=== PATIENT | female | born 1935 | race Caucasian/White ===

== ENCOUNTER 2022-10-01 12:20 | Outpatient (CLI) | payer MEDICARE, SELFPAY ==
--- NOTE | 2022-10-01 12:50 | ECG_ITS ---
Measurements Intervals [place] Rate: 86 P: 42 CA: 186 QRS: 8 QRSD: 94 T: 53 QT: 372 QTc: 447 Interpretive Statements SINUS RHYTHM DELAYED PRECORDIAL R/S TRANSITION VOLTAGE CRITERIA FOR LVH CONSIDER INFERIOR INFARCT, AGE INDETERMINATE NONSPECIFIC T-WAVE ABNORMALITY- HIGH LATERAL LEADS ABNORMAL ECG NO PREVIOUS ECG AVAILABLE FOR COMPARISON Electronically Signed On 10-01-2022 13:14:21 CDT by Twan Espinosa D.O.
[2022-10-01 13:15] LABS: Anion Gap 12 mmol/L (8-16); Blood Urea Nitrogen 22 mg/dL (7-17); Calcium 8.6 mg/dL (8.4-10.2); Carbon Dioxide 28 mmol/L (22-30); Chloride 94 mmol/L (98-107); Estimated Glomerular Filt Rate 39; Glucose 253 mg/dL (65-110); Potassium 3.8 mmol/L (3.4-5.0); Sodium 134 mmol/L (137-145)
== END 2022-10-01 12:21 | disposition home or self-care (01) ==
PROVIDERS: Anesthesiology; PCP Internal Medicine; Visit Provider Otolaryngology
DX: E11.9 Type 2 diabetes mellitus without complications (principal); I10 Essential (primary) hypertension; Z01.818 Encounter for other preprocedural examination; R94.31 Abnormal electrocardiogram [ECG] [EKG]
CPT/HCPCS: 36415; 80048; 93005

== ENCOUNTER 2022-10-07 01:16 | Day surgery (SDC) | payer MEDICARE, SELFPAY ==
[2022-09-25 12:02] VITALS: BMI 29.3
--- NOTE | 2022-09-25 12:28 | PC.NURSE ---
PRE-OP INSTRUCTIONS, PLEASE READ CAREFULLY Report to the Outpatient Waiting Room, entrance under the green pavilion located off [facility], at time __1 PM on date _10/07/22_. Planned Procedure Time: _3 PM__. Time changes happen often and if your time is changed the preop area will call you the afternoon before. - You and your visitor will be asked to self-screen and do not enter if you have any COVID symptoms. - A mask is optional within the hospital at this time. Patients may have clear liquids (water, carbonated beverages, clear teas, apple juice) until 3 hours prior to surgery (1200 - NOON) with a maximum of 20 ounces. - No food from midnight until time of surgery Take the following medications with a SIP of water the morning of surgery: _GABAPENTIN, SERTRALINE & TYLENOL, LORAZEPAM IF NEEDED_ DO NOT STOP ANY OF YOUR OTHER PRESCRIPTION MEDICATIONS PRIOR TO SURGERY ?EXCEPT THE FOLLOWING Medications to discontinue _ASPIRIN & CLOPIDOGREL (PLAVIX) CALL DR. VARELA'S OFFICE FOR INSTRUCTIONS_ Please no make-up, nail bangladeshi, hairspray, perfume, deodorant, or body powder the day of surgery. No jewelry (including any body piercings) or valuables the day of surgery, leave them at home. Please take a shower or bath the night before, or the morning of, surgery with an antibacterial soap. Wear comfortable, loose fitting clothing. - Jewelry must be removed prior to entering the operating room. Rings and piercings that are not removed may be cut off. - The hospital will not accept responsibility for valuables. - Please leave all valuables, including medications, at home the day of surgery. If you are going home after surgery, a licensed fleet driver must drive you home. - NO public transportation without another adult if you receive anesthesia. - We recommend that an adult stay with you for 24 hours following discharge. - We also recommend that you do not drive, make important decision, drink alcoholic beverages, or take any drugs that were not prescribed by your health care provider for at least 24 hours after your discharge time. Follow any additional instructions given to you from your surgeon. If you or anyone in your household have experienced Covid symptoms in the past week, please notify your surgeon or the nurse liaison at the phone number below for possible testing. Telephone instructions given to _PATIENT_and asked if any additional questions and then verbalized understanding. Patient advised to call surgeon office or pre surgery nurse liaison [phone] if any additional questions.
--- NOTE | 2022-10-04 17:39 | P.HP_ITS ---
H&P: HPI History of Present Illness Date/Time: 10/04/22 17:39 Chief Complaint: Tongue lesion Narrative: planned procedure Review of Systems Review of Systems: All systems reviewed & are unremarkable except as noted in HPI and below [facility] Past Medical History Medical History (Updated 09/18/22 @ 13:48 by London Patel MD) Cataract Surgical History Surgical History (Updated 09/18/22 @ 13:23 by Alice Ryan CMA) H/O hysterectomy for benign disease Family History Family History (Updated 09/18/22 @ 13:24 by Alice Ryan CMA) Father Depression Mother Depression Sibling Depression Son Cancer Other Cancer Depression Grandparent Depression Social History Social History (Updated 09/18/22 @ 13:16 by Alice Ryan CMA) Smoking status: Never smoker Second hand tobacco smoke exposure: No Alcohol intake: never Substance use: never Substance use type: does not use Living arrangements: with family Spiritual care concerns: No Meds Home Medications and Allergies Home Medications Medication Instructions Recorded Confirmed Type acetaminophen 500 mg tablet 500 mg PO Q6H PRN Pain 09/18/22 09/25/22 History (Tylenol Extra Strength) aspirin 81 mg capsule 81 mg PO DAILY 09/18/22 09/25/22 History atorvastatin 20 mg tablet 20 mg PO DAILY 09/18/22 09/25/22 History clopidogrel 75 mg tablet 75 mg PO DAILY 09/18/22 09/25/22 History furosemide 40 mg tablet 40 mg PO QAM 09/18/22 09/25/22 History gabapentin 100 mg capsule 100 mg PO BID 09/18/22 09/25/22 History insulin glargine 100 unit/mL (3 13 unit subcut QPM 09/18/22 09/25/22 History mL) subcutaneous pen (Lantus Solostar U-100 Insulin) lorazepam 1 mg tablet 1 mg PO BID PRN Anxiety 09/18/22 09/25/22 History losartan 100 mg tablet 100 mg PO DAILY 09/18/22 09/25/22 History quetiapine 50 mg tablet 50 mg PO QHS 09/18/22 09/25/22 History sertraline 25 mg tablet (Zoloft) 25 mg PO DAILY 09/18/22 09/25/22 History cyanocobalamin (vitamin B-12) 1 tab-cap DAILY 09/25/22 09/25/22 History potassium chloride 20 mEq 20 meq PO DAILY 09/25/22 09/25/22 History tablet,extended release Allergies Allergy/AdvReac Type Severity Reaction Status Date / Time ciprofloxacin Allergy Severe ITCHING Verified 09/25/22 11:55 levofloxacin Allergy Severe ITCHING Verified 09/25/22 11:55 lidocaine AdvReac HOT FLUSH Verified 09/25/22 14:34 FEELING Exam Narrative: large anterior based tongue lesion Assessment and Plan Assessment and plan (1) Tongue lesion: Code(s): K14.8 - Other diseases of tongue Status: Acute Plan plan operating room for excisional biopsy of tongue lesion. Total operative time probably only 30 minutes will need a side-biting mouth gag. Risks were discussed including bleeding infection , risks of anesthesia at her age as well. Failure to obtain diagnosis. Postoperative pain.
[2022-10-07 12:55] VITALS: BP 146/70; PULSE 84; RESP 16; TEMP 36.3; O2SAT 95; BMI 28.2
[2022-10-07 14:01] LABS: Glucose Point of Care 116 mg/dl (65-105)
[2022-10-07] MEDS: LACTATED RINGERS 1,000 ML 30 ML IV CONT (14:15)
--- NOTE | 2022-10-07 14:42 | WPDHPUPDATE1 ---
History and Physical Update Update Date/Time: 10/07/22 14:42 History and Physical has been reviewed, including an updated exam of the patient. There are NO changes in the patient's condition. Risks, benefits, and alternatives have been discussed and questions answered. Patient agrees to proceed with procedure.
--- NOTE | 2022-10-07 14:44 | WPDANESEPP ---
Anes - Eval Pre Procedure Procedure: Operation Date: 10/07/22 15:00 Proposed Procedures p Biopsy of Tongue Lesion - London Patel MD Date/Time: 10/07/22 14:44 Pre Op Diagnosis: tongue lesion Patient Data Age: 87 Gender: F Height: 1.5 m Weight: 63.4 kg Last Vital Signs Temp 36.3 C L 10/07/22 12:55 Pulse 84 10/07/22 12:55 Resp 16 10/07/22 12:55 BP 146/70 H 10/07/22 12:55 Pulse Ox 95 10/07/22 12:55 O2 Del Method Room Air 10/07/22 12:55 Allergies Allergy/AdvReac Type Severity Reaction Status Date / Time ciprofloxacin Allergy Severe ITCHING Verified 10/07/22 14:04 levofloxacin Allergy Severe ITCHING Verified 10/07/22 14:04 lidocaine AdvReac HOT FLUSH Verified 10/07/22 14:04 FEELING Home Medications Medication Instructions Recorded Confirmed Type acetaminophen 500 mg tablet 500 mg PO Q6H PRN Pain 09/18/22 09/25/22 History (Tylenol Extra Strength) aspirin 81 mg capsule 81 mg PO DAILY 09/18/22 10/07/22 History atorvastatin 20 mg tablet 20 mg PO DAILY 09/18/22 09/25/22 History clopidogrel 75 mg tablet 75 mg PO DAILY 09/18/22 10/07/22 History furosemide 40 mg tablet 40 mg PO QAM 09/18/22 10/07/22 History gabapentin 100 mg capsule 100 mg PO BID 09/18/22 09/25/22 History insulin glargine 100 unit/mL (3 13 unit subcut QPM 09/18/22 10/07/22 History mL) subcutaneous pen (Lantus Solostar U-100 Insulin) lorazepam 1 mg tablet 1 mg PO BID PRN Anxiety 09/18/22 09/25/22 History losartan 100 mg tablet 100 mg PO DAILY 09/18/22 09/25/22 History quetiapine 50 mg tablet 50 mg PO QHS 09/18/22 09/25/22 History sertraline 25 mg tablet (Zoloft) 25 mg PO DAILY 09/18/22 09/25/22 History cyanocobalamin (vitamin B-12) 1 tab-cap DAILY 09/25/22 09/25/22 History potassium chloride 20 mEq 20 meq PO DAILY 09/25/22 09/25/22 History tablet,extended release Laboratory Tests 10/07/22 13:53 POC Capillary Glucose 116 H mg/dl (65-105) Patient hx anesthesia problems: none Family hx anesthesia problems: none Results Review: All pre-operative results and documents have been reviewed as part of the pre-operative evaluation. [facility] Past Medical History Medical History (Updated 10/07/22 @ 14:45 by Deanna Tillman CRNA) Anxiety CAD (coronary artery disease) Cataract Depression DM (diabetes mellitus) Overweight Surgical History Surgical History (Updated 10/07/22 @ 14:45 by Deanna iTllman CRNA) H/O hysterectomy for benign disease Hx of CABG Family History Family History (Updated 09/18/22 @ 13:24 by Alice Ryan CMA) Father Depression Mother Depression Sibling Depression Son Cancer Other Cancer Depression Grandparent Depression Social History Social History (Updated 09/18/22 @ 13:16 by Alice Ryan CMA) Smoking status: Never smoker Second hand tobacco smoke exposure: No Alcohol intake: never Substance use: never Substance use type: does not use Living arrangements: with family Spiritual care concerns: No Exam Day of Procedure 10/07/22 14:44
--- NOTE | 2022-10-07 14:45 | P.PNAN_ITS ---
Anes - Eval Final PreProcedure Day of Procedure 10/07/22 14:45 Patient weight: overweight Heart: regular rate and rhythm Lungs: decreased breath sounds Airway: Mallampati scale class III Neurological: alert and oriented Last oral intake: >/= 8 hours ASA classification: III Emergent: no Anesthetic plan: proceed Anesthesia type and monitoring: general ETT and standard monitoring Results Review: All pre-operative results and documents have been reviewed as part of the pre- operative evaluation. Informed Consent: The patient's anesthetic plan and its attendant risks and benefits were discussed with the patient/family/POA. Questions were solicited and answers provided to the satisfaction of the patient/family/POA.
[2022-10-07] MEDS: ceFAZolin 2 GM/D5W 50 ML 2 GM/50 ML BAG IVPB (14:49)
[2022-10-07] MEDS: LIDO 1%/EPINEPHRINE 1:100,000 50 ML VIAL INFILTRATE (15:00)
[2022-10-07 15:20] VITALS: BP 150/65; PULSE 88; RESP 23; TEMP 36.4; O2SAT 96
[2022-10-07 15:24] LABS: Glucose Point of Care 123 mg/dl (65-105)
[2022-10-07 15:35] VITALS: BP 147/68; PULSE 76; RESP 20; O2SAT 97
--- NOTE | 2022-10-07 15:44 | W.PM.PROC2 ---
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 Patient brought operating. Time-out performed. General anesthesia induced endotracheal tube secured. Patient prepped draped position. Second time-out performed. Bovie utilized on cut at a setting of 10 2 about 1 x 1 cm portions at that/ 2.5 x 0.75 cm portions excise 1 sent for frozen 1 sent for permanent no bleeding patient tolerated the procedure well. No complications. Care the patient given Anesthesiology patient taken to PACU. Drains No Packing Yes Pathology Yes ( Positive frozen SCCa) Complications No immediate complications Condition Stable Disposition PACU [facility] Billing Surgery - Charge Forward: Surgery Billing
[2022-10-07 15:50] VITALS: BP 140/64; PULSE 74; RESP 20; O2SAT 96
[2022-10-07 16:05] VITALS: BP 157/52; PULSE 78; RESP 16
[2022-10-07 16:35] VITALS: BP 154/64; PULSE 77; RESP 16
== END 2022-10-07 16:56 | disposition home or self-care (01) ==
PROVIDERS: PCP Internal Medicine; Visit Provider Otolaryngology
PROC: (CPT 40810; principal; 2022-10-07 15:00)
DX: C02.9 Malignant neoplasm of tongue, unspecified (principal); I25.10 Atherosclerotic heart disease of native coronary artery without angina pectoris; E11.9 Type 2 diabetes mellitus without complications; F41.9 Anxiety disorder, unspecified; F32.A Depression, unspecified; Z95.1 Presence of aortocoronary bypass graft; Z79.82 Long term (current) use of aspirin; Z79.4 Long term (current) use of insulin; Z79.02 Long term (current) use of antithrombotics/antiplatelets
CPT/HCPCS: 41100; 82948; 88305; 88331; J0330; J0690; J2405; J2704; J7120

== ENCOUNTER 2023-02-21 14:52 | Emergency (ER) | payer MEDICARE, SELFPAY ==
--- NOTE | ~2023-02-21 | CT_ITS ---
EXAMINATION: CT abdomen pelvis wo con DATE: 02/21/2023 21:59 INDICATION: Abdominal pain TECHNIQUE: Computed tomography (CT) of the abdomen and pelvis was performed without intravenous contr ast. The dose-length product (DLP) was 784.27 mGy-cm. Automated exposure control and iterative recons truction technique were employed. COMPARISON: 11/15/2007 FINDINGS: There is mild atelectasis of the visualized lung bases. Areas of more focal airspace opacit ies are seen in the left lung base. The heart size is normal. Changes of median sternotomy are noted. The liver, pancreas, and left adrenal gland are normal. There is a 7 mm adenoma of the right adrenal gland. Punctate calcifications in an otherwise normal spleen likely represent healed granulomatous d isease. Changes of cholecystectomy are noted. The kidneys are unremarkable. There is calcified athero sclerosis of the aorta and many of the other arteries. No pathologically enlarged abdominal or pelvic lymph nodes are identified. No free intraperitoneal gas or evidence of bowel obstruction. There is s evere lumbar spondylosis. There is fusion of the T10 and T11 vertebral bodies. Severe lower thoracic spondylosis is noted. IMPRESSION: 1. No CT correlate for the patient's symptoms. 2. Minimal airspace opacities of the left lung base, likely pneumonia. Reviewed, dictated and finalized at location F.
[2023-02-21 14:56] VITALS: BP 170/69; PULSE 88; RESP 20; TEMP 36.6; O2SAT 98
[2023-02-21 16:29] LABS: Basophils Percent Auto 0.2 % (0.2-1.2); Eosinophils Absolute Auto 0.1 K/mm3 (0-0.3); Eosinophils Percent Auto 0.9 % (0-4.4); Hematocrit 37.2 % (37.0-47.0); Hemoglobin 12.2 g/dL (12.0-15.0); Immature Granulocyte Absolute 0.03 K/mm3 (0.00-0.031); Immature Granulocyte Percent A 0.3 % (0-0.5); Lymphocytes Absolute Auto 1.78 K/mm3 (0.9-3.2); Lymphocytes Percent Auto 20.4 % (18.3-44.2); Mean Corpuscular HGB Conc 32.8 g/dl (32-36); Mean Corpuscular Hemoglobin 28.8 pg (26-34); Mean Corpuscular Volume 87.9 fl (80-100); Mean Platelet Volume 8.9 fl (7.4-10.4); Monocytes Absolute Auto 0.7 K/mm3 (0.1-0.6); Monocytes Percent Auto 8.2 % (2.6-8.5); Neutrophils Absolute Auto 6.1 K/mm3 (1.3-6.7); Platelet Count Result 301 k/mm3 (150-375); Red Blood Count 4.23 M/mm3 (4.2-5.4); Red Cell Distribution Width 13.4 % (11.5-14.5); White Blood Count 8.7 K/mm3 (4.5-10.0)
[2023-02-21 16:35] LABS: Appearance Urine Clear (Clear); Bacteria Urine None Seen /hpf; Bilirubin Urine Negative (Negative); Blood Urine Negative (Negative); Color Urine Yellow (Yellow); Glucose Urine UA Negative (Negative); Ketones Urine Negative (Negative); Leukocyte Esterase Ur 2+ LEU/UL (Negative); Nitrate Urine Negative (Negative); Non Pathogenic Casts 0-2; Protein Urine Trace mg/dL (Negative); RBC Urine 0-2 /hpf (0-2); Specific Grav Ur 1.017 (1.001-1.035); Squamous Epithelial Cell Urine Few /hpf (Few); pH Urine 6.5 (5.0-9.0)
[2023-02-21 16:38] LABS: Alanine Aminotransferase 16 U/L (6-35); Albumin Level 4.2 g/dL (3.5-5.1); Alkaline Phosphatase 75 U/L (38-126); Anion Gap 11 mmol/L (8-16); Aspartate Amino Transferase 25 U/L (14-36); Bilirubin,Total 0.4 mg/dL (0.2-1.3); Blood Urea Nitrogen 12 mg/dL (7-17); Carbon Dioxide 26 mmol/L (22-30); Chloride 99 mmol/L (98-107); Estimated Glomerular Filt Rate > 60; Glucose 164 mg/dL (65-110); Lipase 119 U/L (23-300); Potassium 3.6 mmol/L (3.4-5.0); Sodium 136 mmol/L (137-145)
[2023-02-21 16:45] LABS: Add Urine Microscopic? YES
--- NOTE | 2023-02-21 20:32 | ED.GENADULT ---
HPI - General Adult General Chief complaint: Abdominal Pain Stated complaint: back pain, shoulder pain Time Seen by Provider: 02/21/23 20:19 History of Present Illness HPI narrative: Patient 87-year-old female who presents the emergency department with chief complaint of abdominal pain. Patient reports for the last 2 weeks she has been having pain in her abdomen reports it radiates to her back. Patient states pain is sharp reports that its not improved by anything reports that she feels as though the bones are moving in her abdomen. The patient states that the pain is not improved by anything reports that she had 1 episode of vomiting patient reports that she has been taking a laxative and has not had a loose orange-colored stool. Patient does report that she had multiple abdominal surgeries in the past Related Data Home Medications Medication Instructions Recorded Confirmed acetaminophen 500 mg tablet 500 mg PO Q6H PRN Pain 09/18/22 09/25/22 (Tylenol Extra Strength) aspirin 81 mg capsule 81 mg PO DAILY 09/18/22 10/07/22 atorvastatin 20 mg tablet 20 mg PO DAILY 09/18/22 09/25/22 clopidogrel 75 mg tablet 75 mg PO DAILY 09/18/22 10/07/22 furosemide 40 mg tablet 40 mg PO QAM 09/18/22 10/07/22 gabapentin 100 mg capsule 100 mg PO BID 09/18/22 09/25/22 insulin glargine 100 unit/mL (3 13 unit subcut QPM 09/18/22 10/07/22 mL) subcutaneous pen (Lantus Solostar U-100 Insulin) lorazepam 1 mg tablet 1 mg PO BID PRN Anxiety 09/18/22 09/25/22 losartan 100 mg tablet 100 mg PO DAILY 09/18/22 09/25/22 quetiapine 50 mg tablet 50 mg PO QHS 09/18/22 09/25/22 sertraline 25 mg tablet (Zoloft) 25 mg PO DAILY 09/18/22 09/25/22 cyanocobalamin (vitamin B-12) 1 tab-cap DAILY 09/25/22 09/25/22 potassium chloride 20 mEq 20 meq PO DAILY 09/25/22 09/25/22 tablet,extended release Allergies Allergy/AdvReac Type Severity Reaction Status Date / Time ciprofloxacin Allergy Severe ITCHING Verified 02/21/23 20:41 levofloxacin Allergy Severe ITCHING Verified 02/21/23 20:41 iodine Allergy Unknown Verified 02/21/23 21:58 lidocaine AdvReac HOT FLUSH Verified 02/21/23 20:41 FEELING Review of Systems Review of Systems: A 10 system review of systems was completed on the patient and is negative except for what is stated in the HPI. Nursing and ancillary documentation was reviewed. PMFSH Past Medical History Medical History Anxiety CAD (coronary artery disease) Cataract Depression DM (diabetes mellitus) Overweight Surgical History Surgical History H/O hysterectomy for benign disease Hx of CABG Family History Family History Father Depression Mother Depression Sibling Depression Son Cancer Other Cancer Depression Grandparent Depression Social History Social History Smoking status: Never smoker Second hand tobacco smoke exposure: No Alcohol intake: never Substance use: never Substance use type: does not use Living arrangements: with family Gender identity (if verbalized by the patient): Female Sexual Orientation (if Verbalized by the Patient): Straight or Heterosexual Spiritual care concerns: No Exam Narrative: GENERAL: Well-appearing, well-nourished, and in no acute distress. HEAD: Normocephalic, atraumatic. EYES: PERRLA and EOMI. ENT: Nares clear, no rhinorrhea or epistaxis. Mucous membranes moist. NECK: Supple. CHEST: Clear to auscultation. No respiratory distress. HEART: Regular rate and rhythm. No murmur heard. Normal peripheral pulses. ABDOMEN: Soft, diffuse tenderness to palpation, nondistended, normal active bowel sounds. EXTREMITIES: Normal range of motion. No edema. SKIN: Warm, dry, no rash. NEURO: No focal deficits. Alert and orien
[2023-02-21 20:36] VITALS: BP 224/84; PULSE 81; RESP 18; O2SAT 97
[2023-02-21] MEDS: MORPHINE SULFATE (*CRX) 4 MG/ML INJ 2 MG IV PUSH (21:41)
[2023-02-21] MEDS: CEFDINIR 300 MG CAPSULE PO (23:25)
[2023-02-21] MEDS: AZITHROMYCIN 250 MG TABLET 500 MG PO (23:25)
== END 2023-02-21 23:45 | disposition home or self-care (01) ==
PROVIDERS: Emergency Medicine; Emergency Provider Emergency Medicine; PCP Internal Medicine
DX: J18.9 Pneumonia, unspecified organism (principal); N39.0 Urinary tract infection, site not specified; R10.9 Unspecified abdominal pain; I25.10 Atherosclerotic heart disease of native coronary artery without angina pectoris; E11.9 Type 2 diabetes mellitus without complications; F41.9 Anxiety disorder, unspecified; Z95.1 Presence of aortocoronary bypass graft; Z79.82 Long term (current) use of aspirin; Z79.02 Long term (current) use of antithrombotics/antiplatelets; Z79.4 Long term (current) use of insulin; Z79.891 Long term (current) use of opiate analgesic
CPT/HCPCS: 36415; 74176; 80053; 81001; 83690; 85025; 87086; 87088; 96374; 99284; A9270; J2270

== ENCOUNTER 2023-02-26 15:21 | Emergency (ER) | payer MEDICARE, SELFPAY ==
[2023-02-26] VITALS (23 sets, daily range): BP systolic 156–230; BP diastolic 72–99; PULSE 78–117; RESP 12–21; TEMP 35.7; O2SAT 95–98
--- NOTE | ~2023-02-26 | XR_ITS ---
EXAMINATION: XR chest 2V DATE: 02/26/2023 16:41 INDICATION: Chest pain. TECHNIQUE: Frontal and lateral views of the chest were obtained. COMPARISON: Chest single view 09/09/2013, CT abdomen and pelvis 02/21/2023 FINDINGS: There are interstitial opacities in left mid and lower lung zones. A calcified left lung no dules consistent with old granulomatous disease. No pleural effusion or pneumothorax. The heart size is normal. Median sternotomy wires and mediastinal surgical clips are seen, likely from prior coronar y artery bypass grafting. Surgical clips in the right upper quadrant are likely from cholecystectomy. There is an old healed right rib fracture. IMPRESSION: 1. Interstitial opacities in left mid and lower lung zones, consistent with pneumonia and/or chronic lung disease. Reviewed, dictated and finalized at location E. IMPRESSION: 1. Interstitial opacities in left mid and lower lung zones, consistent with pne umonia and/or chronic lung disease.
--- NOTE | ~2023-02-26 | CT_ITS ---
EXAMINATION: CT abdomen pelvis wo con DATE: 02/26/2023 18:59 INDICATION: RLQ R low back abdominal pain TECHNIQUE: Computed tomography (CT) of the abdomen and pelvis was performed without intravenous contr ast. Automated exposure control and iterative reconstruction technique were employed. The dose-length product was 404.47 mGy-cm. COMPARISON: 02/21/2023. FINDINGS: Lower thorax: Bibasilar senescent change. Granulomatous calcification. Coronary artery calcification. Liver: Normal. Biliary/Gallbladder: Gallbladder is absent. No bile duct dilation. Pancreas: No mass or duct dilation. Spleen: Granulomatous calcification Adrenals: 7 mm right adrenal adenoma. Kidneys: No suspicious mass, obstructing stone, or hydronephrosis. GI tract: No small or large bowel dilation. Appendix not confidently visualized. No right lower quadr ant inflammatory process. Diverticulosis without diverticulitis. Mesentery/Peritoneum: No ascites, mass, or free air. Retroperitoneum: No mass. Atherosclerotic abdominal aortic and/or arterial calcifications. Pelvis: Absent uterus. Normal urinary bladder.. Soft Tissues: Right flank lipoma. Bones: No acute osseous finding. IMPRESSION: No acute abdominopelvic process detected Reviewed, dictated and finalized at location K.
--- NOTE | 2023-02-26 15:24 | ECG_ITS ---
Measurements Intervals [place] Rate: 78 P: 54 [place]: 209 QRS: 1 QRSD: 90 T: 47 QT: 410 QTc: 469 Interpretive Statements SINUS RHYTHM MODERATE VOLTAGE CRITERIA FOR LVH, CONSIDER NORMAL VARIANT [MEETS CRITERIA IN ONE OF: R(aVL), S(V1), R(V5), R(V5/V6)+S(V1)] NONSPECIFIC T-WAVE ABNORMALITY COMPARED TO ECG 10/01/2022 12:52:09 T-WAVE ABNORMALITY NOW PRESENT Electronically Signed On 02-26-2023 20:37:48 CDT by Indy More M.D.
[2023-02-26 15:55] LABS: Basophils Percent Auto 0.4 % (0.2-1.2); Eosinophils Absolute Auto 0.2 K/mm3 (0-0.3); Eosinophils Percent Auto 1.4 % (0-4.4); Hematocrit 41.9 % (37.0-47.0); Hemoglobin 13.4 g/dL (12.0-15.0); Immature Granulocyte Absolute 0.05 K/mm3 (0.00-0.031); Immature Granulocyte Percent A 0.5 % (0-0.5); Lymphocytes Absolute Auto 2.27 K/mm3 (0.9-3.2); Lymphocytes Percent Auto 20.6 % (18.3-44.2); Mean Corpuscular Hemoglobin 28.7 pg (26-34); Mean Corpuscular Volume 89.7 fl (80-100); Mean Platelet Volume 9.1 fl (7.4-10.4); Monocytes Absolute Auto 0.9 K/mm3 (0.1-0.6); Monocytes Percent Auto 7.9 % (2.6-8.5); Neutrophils Absolute Auto 7.6 K/mm3 (1.3-6.7); Neutrophils Percent Auto 69.2 % (45.5-73.1); Platelet Count Result 355 k/mm3 (150-375); Red Blood Count 4.67 M/mm3 (4.2-5.4); Red Cell Distribution Width 13.7 % (11.5-14.5)
[2023-02-26 16:04] LABS: Prothrombin Time 13.2 Seconds (11.1-14.7)
[2023-02-26 16:30] LABS: Partial Thromboplastin Time 20.3 SECONDS (22.3-36.8)
[2023-02-26 17:03] LABS: Alanine Aminotransferase 18 U/L (6-35); Albumin Level 4.7 g/dL (3.5-5.1); Alkaline Phosphatase 87 U/L (38-126); Anion Gap 11 mmol/L (8-16); Aspartate Amino Transferase 29 U/L (14-36); Bilirubin,Total 0.5 mg/dL (0.2-1.3); Blood Urea Nitrogen 14 mg/dL (7-17); Calcium 9.7 mg/dL (8.4-10.2); Carbon Dioxide 25 mmol/L (22-30); Chloride 101 mmol/L (98-107); Estimated Glomerular Filt Rate 59; Glucose 113 mg/dL (65-110); Lipase 141 U/L (23-300); Potassium 3.6 mmol/L (3.4-5.0); Sodium 137 mmol/L (137-145)
[2023-02-26 17:14] LABS: Troponin I < 0.012 ng/mL (0.000-0.034)
--- NOTE | 2023-02-26 18:30 | ED.GENADULT ---
HPI - General Adult General Chief complaint: Unspecified Stated complaint: pain all over Time Seen by Provider: 02/26/23 18:10 Source: patient and old records reviewed Mode of arrival: ambulatory Limitations: no limitations History of Present Illness HPI narrative: Patient is an 87 y/o female who presents to the ED with c/o R sided abdominal pain. Patient reports having pain for the last 1 week. She was seen in the ED here 5 days ago and her work-up revealed left-sided pneumonia, UTI. She was started on cefdinir and azithromycin. She finished these antibiotics yesterday. However patient reports pain has continued to worsen. Pain radiates around to her right lower back. She did report 1 episode of vomiting today. Denies feeling nauseous currently. Denies diarrhea, constipation, fevers, chest pain, shortness of breath, urinary difficulty. Related Data Home Medications Medication Instructions Recorded Confirmed acetaminophen 500 mg tablet 500 mg PO Q6H PRN Pain 09/18/22 09/25/22 (Tylenol Extra Strength) aspirin 81 mg capsule 81 mg PO DAILY 09/18/22 10/07/22 atorvastatin 20 mg tablet 20 mg PO DAILY 09/18/22 09/25/22 clopidogrel 75 mg tablet 75 mg PO DAILY 09/18/22 10/07/22 furosemide 40 mg tablet 40 mg PO QAM 09/18/22 10/07/22 gabapentin 100 mg capsule 100 mg PO BID 09/18/22 09/25/22 insulin glargine 100 unit/mL (3 13 unit subcut QPM 09/18/22 10/07/22 mL) subcutaneous pen (Lantus Solostar U-100 Insulin) lorazepam 1 mg tablet 1 mg PO BID PRN Anxiety 09/18/22 09/25/22 losartan 100 mg tablet 100 mg PO DAILY 09/18/22 09/25/22 quetiapine 50 mg tablet 50 mg PO QHS 09/18/22 09/25/22 sertraline 25 mg tablet (Zoloft) 25 mg PO DAILY 09/18/22 09/25/22 cyanocobalamin (vitamin B-12) 1 tab-cap DAILY 09/25/22 09/25/22 potassium chloride 20 mEq 20 meq PO DAILY 09/25/22 09/25/22 tablet,extended release Allergies Allergy/AdvReac Type Severity Reaction Status Date / Time ciprofloxacin Allergy Severe ITCHING Verified 02/21/23 20:41 levofloxacin Allergy Severe ITCHING Verified 02/21/23 20:41 iodine Allergy Unknown Verified 02/21/23 21:58 lidocaine AdvReac HOT FLUSH Verified 02/21/23 20:41 FEELING Review of Systems Review of Systems: CONSTITUTIONAL: Denies fever, chills, or sweats. CARDIOVASCULAR: Denies chest pain. RESPIRATORY: Denies dyspnea. GASTROINTESTINAL: See HPI. GENITOURINARY: Denies dysuria or hematuria. SKIN: Denies rash or itching. MUSCULOSKELETAL: See HPI. NEUROLOGIC: Denies headache, numbness, or weakness. All systems reviewed & are unremarkable except as noted in HPI and below PMFSH Past Medical History Medical History Anxiety CAD (coronary artery disease) Cataract Depression DM (diabetes mellitus) Overweight Surgical History Surgical History H/O hysterectomy for benign disease Hx of CABG Family History Family History Father Depression Mother Depression Sibling Depression Son Cancer Other Cancer Depression Grandparent Depression Social History Social History Smoking status: Never smoker Second hand tobacco smoke exposure: No Alcohol intake: never Substance use: never Substance use type: does not use Living arrangements: with family Gender identity (if verbalized by the patient): Female Sexual Orientation (if Verbalized by the Patient): Straight or Heterosexual Spiritual care concerns: No Exam Narrative: GENERAL: Elderly, frail, non-toxic, in no acute distress. HEAD: Normocephalic, atraumatic. NECK: Supple. No adenopathy, no masses. RESPIRATORY: Airway patent, respirations nonlabored. Clear to auscultation bilaterally, no rales, rhonchi, wheezing. CARDIOVASCULAR: Regular rate and rhythm without murmurs, rubs,
[2023-02-26] MEDS: ACETAMINOPHEN 325 MG TABLET 650 MG PO (18:36)
[2023-02-26] MEDS: hydrALAZINE HCL 20 MG/ML VIAL 10 MG IV PUSH ×2 (18:38→19:27)
[2023-02-26 19:14] LABS: Troponin I 0.016 ng/mL (0.000-0.034)
[2023-02-26 21:39] LABS: Appearance Urine Clear (Clear); Bacteria Urine None Seen /hpf; Bilirubin Urine Negative (Negative); Blood Urine Negative (Negative); Color Urine Yellow (Yellow); Glucose Urine UA Negative (Negative); Ketones Urine Trace mg/dL (Negative); Leukocyte Esterase Ur Negative LEU/UL (Negative); Nitrate Urine Negative (Negative); Non Pathogenic Casts 0-2; Protein Urine Trace mg/dL (Negative); RBC Urine 0-2 /hpf (0-2); Specific Grav Ur 1.021 (1.001-1.035); Squamous Epithelial Cell Urine None seen /hpf (Few); Urobilinogen Urine 0.2 mg/dL (<2.0); WBC Urine 0-5 /hpf
[2023-02-26 21:46] LABS: Add Urine Microscopic? YES
[2023-02-26 22:04] LABS: Troponin I < 0.012 ng/mL (0.000-0.034)
== END 2023-02-26 23:12 | disposition home or self-care (01) ==
PROVIDERS: Emergency Medicine; Emergency Provider Physician Assistant; PCP Internal Medicine
DX: R10.31 Right lower quadrant pain (principal); J18.9 Pneumonia, unspecified organism; I10 Essential (primary) hypertension; I25.10 Atherosclerotic heart disease of native coronary artery without angina pectoris; E11.9 Type 2 diabetes mellitus without complications; F41.9 Anxiety disorder, unspecified; F32.A Depression, unspecified; E66.3 Overweight; Z68.27 Body mass index [BMI] 27.0-27.9, adult; Z95.1 Presence of aortocoronary bypass graft; Z90.710 Acquired absence of both cervix and uterus; Z79.82 Long term (current) use of aspirin; Z79.4 Long term (current) use of insulin; R94.31 Abnormal electrocardiogram [ECG] [EKG]
CPT/HCPCS: 36415; 71046; 74176; 80053; 81001; 83690; 84484; 85025; 85610; 85730; 93005; 96374; 96376; 99284; A9270; J0360

== ENCOUNTER 2023-03-06 18:12 | Emergency (ER) | payer MEDICARE, SELFPAY ==
[2023-03-06 18:14] VITALS: BP 204/78; PULSE 97; RESP 18; TEMP 36.6; O2SAT 97
--- NOTE | 2023-03-06 19:32 | ED.GENADULT ---
HPI - General Adult General Chief complaint: Unspecified Stated complaint: R lower back pain/R abd/R leg pain Time Seen by Provider: 03/06/23 19:27 History of Present Illness HPI narrative: Patient is an 87-year-old female who presents to the emergency department this afternoon complaining of urinary retension and right hip pain. Patient denies any recent falls or trauma, states that her right hip does flareup from time to time and believes that it is due to to osteoarthritis. Patient states that she did urinate yesterday, however, today she has not been able to urinate and she does not feel as though her bladder is distended. She is currently denying any midline back pain, any bowel incontinence, and denies any lower extremity weakness. Patient ambulates using a walker and has been doing that with no difficulties. She presents to the emergency department accompanied by her son and and they are requesting a new primary care physician as their current PCP no longer sees the patient and has retired. Patient denies any chest pain, shortness of breath, nausea, vomiting, abdominal pain, dysuria, hematuria, constipation, diarrhea, melena, hematochezia, fevers or chills. He also denies any headaches, dizziness, lightheadedness, blurry visions, dizziness, focal weakness, numbness and or tingling. There are no other modifying, alleviating, or precipitating factors at this time. Related Data Home Medications Medication Instructions Recorded Confirmed acetaminophen 500 mg tablet 500 mg PO Q6H PRN Pain 09/18/22 09/25/22 (Tylenol Extra Strength) aspirin 81 mg capsule 81 mg PO DAILY 09/18/22 10/07/22 atorvastatin 20 mg tablet 20 mg PO DAILY 09/18/22 09/25/22 clopidogrel 75 mg tablet 75 mg PO DAILY 09/18/22 10/07/22 furosemide 40 mg tablet 40 mg PO QAM 09/18/22 10/07/22 gabapentin 100 mg capsule 100 mg PO BID 09/18/22 09/25/22 insulin glargine 100 unit/mL (3 13 unit subcut QPM 09/18/22 10/07/22 mL) subcutaneous pen (Lantus Solostar U-100 Insulin) lorazepam 1 mg tablet 1 mg PO BID PRN Anxiety 09/18/22 09/25/22 losartan 100 mg tablet 100 mg PO DAILY 09/18/22 09/25/22 quetiapine 50 mg tablet 50 mg PO QHS 09/18/22 09/25/22 sertraline 25 mg tablet (Zoloft) 25 mg PO DAILY 09/18/22 09/25/22 cyanocobalamin (vitamin B-12) 1 tab-cap DAILY 09/25/22 09/25/22 potassium chloride 20 mEq 20 meq PO DAILY 09/25/22 09/25/22 tablet,extended release Allergies Allergy/AdvReac Type Severity Reaction Status Date / Time ciprofloxacin Allergy Severe ITCHING Verified 02/21/23 20:41 levofloxacin Allergy Severe ITCHING Verified 02/21/23 20:41 iodine Allergy Unknown Verified 02/21/23 21:58 lidocaine AdvReac HOT FLUSH Verified 02/21/23 20:41 FEELING Review of Systems Review of Systems: All systems are reviewed and are negative unless stated otherwise in the HPI. PMFSH Past Medical History Medical History Anxiety CAD (coronary artery disease) Cataract Depression DM (diabetes mellitus) Overweight Surgical History Surgical History H/O hysterectomy for benign disease Hx of CABG Family History Family History Father Depression Mother Depression Sibling Depression Son Cancer Other Cancer Depression Grandparent Depression Social History Social History Smoking status: Never smoker Second hand tobacco smoke exposure: No Alcohol intake: never Substance use: never Substance use type: does not use Living arrangements: with family Gender identity (if verbalized by the patient): Female Sexual Orientation (if Verbalized by the Patient): Straight or Heterosexual Spiritual care concerns: No Exam Narrative: General: Alert, awake, afebrile, in no acute distress. HEENT: PERRL, no rhinorrh
[2023-03-06 21:33] LABS: Basophils Absolute Auto 0.1 K/mm3 (0.0-0.1); Basophils Percent Auto 0.5 % (0.2-1.2); Eosinophils Absolute Auto 0.1 K/mm3 (0-0.3); Eosinophils Percent Auto 1.2 % (0-4.4); Hematocrit 38.8 % (37.0-47.0); Hemoglobin 12.7 g/dL (12.0-15.0); Immature Granulocyte Absolute 0.03 K/mm3 (0.00-0.031); Immature Granulocyte Percent A 0.3 % (0-0.5); Lymphocytes Absolute Auto 2.06 K/mm3 (0.9-3.2); Lymphocytes Percent Auto 22.4 % (18.3-44.2); Mean Corpuscular HGB Conc 32.7 g/dl (32-36); Mean Corpuscular Hemoglobin 28.9 pg (26-34); Mean Corpuscular Volume 88.4 fl (80-100); Mean Platelet Volume 8.9 fl (7.4-10.4); Monocytes Absolute Auto 0.7 K/mm3 (0.1-0.6); Monocytes Percent Auto 7.5 % (2.6-8.5); Neutrophils Absolute Auto 6.3 K/mm3 (1.3-6.7); Neutrophils Percent Auto 68.1 % (45.5-73.1); Platelet Count Result 259 k/mm3 (150-375); Red Blood Count 4.39 M/mm3 (4.2-5.4); Red Cell Distribution Width 13.8 % (11.5-14.5); White Blood Count 9.2 K/mm3 (4.5-10.0)
[2023-03-06 21:44] LABS: Alanine Aminotransferase 24 U/L (6-35); Albumin Level 4.2 g/dL (3.5-5.1); Alkaline Phosphatase 76 U/L (38-126); Anion Gap 9 mmol/L (8-16); Aspartate Amino Transferase 35 U/L (14-36); Bilirubin,Total 0.4 mg/dL (0.2-1.3); Blood Urea Nitrogen 20 mg/dL (7-17); Calcium 9.2 mg/dL (8.4-10.2); Carbon Dioxide 27 mmol/L (22-30); Chloride 97 mmol/L (98-107); Estimated Glomerular Filt Rate > 60; Glucose 115 mg/dL (65-110); Potassium 3.4 mmol/L (3.4-5.0); Sodium 133 mmol/L (137-145)
--- NOTE | 2023-03-06 21:51 | PC.NURSE ---
Pt requesting pain medication, EDP notified
[2023-03-06] MEDS: KETOROLAC 15 MG/ML VIAL (*BKC) IV PUSH (21:57)
[2023-03-06 21:58] LABS: Appearance Urine Clear (Clear); Bilirubin Urine Negative (Negative); Blood Urine Negative (Negative); Color Urine Yellow (Yellow); Glucose Urine UA Negative (Negative); Ketones Urine Negative (Negative); Leukocyte Esterase Ur Negative LEU/UL (Negative); Nitrate Urine Negative (Negative); Protein Urine Negative (Negative); Specific Grav Ur 1.015 (1.001-1.035); Urobilinogen Urine 0.2 mg/dL (<2.0)
[2023-03-06 21:59] VITALS: BP 214/80; PULSE 73; RESP 16; O2SAT 97
[2023-03-06 22:00] LABS: Add Urine Microscopic? NO
== END 2023-03-06 22:52 | disposition home or self-care (01) ==
PROVIDERS: Emergency Provider Emergency Medicine; PCP Internal Medicine
DX: R33.9 Retention of urine, unspecified (principal); I25.10 Atherosclerotic heart disease of native coronary artery without angina pectoris; E11.9 Type 2 diabetes mellitus without complications; E66.3 Overweight; Z68.26 Body mass index [BMI] 26.0-26.9, adult; M19.90 Unspecified osteoarthritis, unspecified site; F41.9 Anxiety disorder, unspecified; Z95.1 Presence of aortocoronary bypass graft; Z90.710 Acquired absence of both cervix and uterus; Z87.440 Personal history of urinary (tract) infections; Z85.810 Personal history of malignant neoplasm of tongue; Z79.82 Long term (current) use of aspirin; Z79.4 Long term (current) use of insulin
CPT/HCPCS: 36415; 51702; 80053; 81003; 85025; 96374; 99284; J1885